=== PATIENT | female | born 1940 | race Caucasian/White ===

== ENCOUNTER → 2016-02-26 | Outpatient (CLI) | payer MEDICARE ==
[2016-02-26 13:15] LABS: Basophils % (A) 0 %; CHCM 32.9; Eosinophils # (A) 0.1 k/uL (0-0.7); Eosinophils % (A) 2 %; HCT 50.1 % (34.0-46.0); HGB 16.4 gm/dL (11.4-16.0); Luc % (Auto) 1; Lymphocytes # (A) 1.8 k/uL (1.0-4.8); Lymphocytes % (A) 19 %; MCH 31.9 pg (25.0-35.0); MCHC 32.7 g/dL (31.0-37.0); MCV 97.6 fL (80.0-100.0); Mean Platelet Volume 8.1; Monocytes # (A) 0.4 k/uL (0-1.0); Monocytes % (A) 4 %; Neutrophils % (A) 74 %; RBC 5.13 m/uL (3.80-5.40); RDW 13.6 % (11.5-15.5); WBC 9.5 k/uL (3.8-10.6); WBC (Perox) 9.44
[2016-02-26 13:26] LABS: Anion Gap 13 mmol/L; Blood Urea Nitrogen 31 mg/dL (7-17); Carbon Dioxide 23 mmol/L (22-30); Chloride 107 mmol/L (98-107); Non-African American GFR(MDRD) 51 (>60 ml/min/1.73 sqM); Sodium 143 mmol/L (137-145)
== END | disposition home or self-care (01) ==
LOC: LABPAT 12:29
PROVIDERS: ATTEND Internal Medicine Cardiovascular Disease
DX: Z01.812 Encounter for preprocedural laboratory examination (principal); I25.5 Ischemic cardiomyopathy
CPT/HCPCS: 80051; 82565; 84520; 85025

== ENCOUNTER 2016-02-28 07:42 | Day surgery (SDC) | payer MEDICARE, OTHER ==
[2016-02-20 10:53] VITALS: BMI 21.5
[~2016-02-28 07:42] MED LIST: LACTATED RINGERS 1,000 ML IV SCH; SODIUM CHLORIDE 0.9% 1,000 ML IV SCH
[2016-02-28] MEDS ORDERED: ceFAZolin 1,000 MG in SODIUM CHLORIDE 0.9% IRRIGATIO 250 ML IRRIGATION ONE (08:00)
[2016-02-28] MEDS ORDERED: ceFAZolin 2 GM in SODIUM CHLORIDE 0.9% 100 ML IVPB ONE (08:00)
[2016-02-28 08:52] VITALS: RESP 18
[2016-02-28 09:19] LABS: INR 1.5 (<1.1); Prothrombin Time 14.3 sec (9.0-12.0)
[2016-02-28] MEDS ORDERED: PROPOFOL 10 MG/ML 20 ML VIAL IV ONE (10:00)
[2016-02-28] MEDS ORDERED: ONDANSETRON 4 MG/2 ML VIAL ONE (10:00)
[2016-02-28] MEDS ORDERED: ePHEDrine 50 MG/ML 1 ML AMP ONE (10:00)
[2016-02-28] MEDS ORDERED: SODIUM CHLORIDE 0.9% 500 ML BAG ONE (10:00)
[2016-02-28] MEDS ORDERED: HYDROmorphone (PF) 1 MG/ML ONE (10:00)
[2016-02-28] MEDS ORDERED: MIDAZOLAM 2 MG/2 ML VIAL ONE (10:00)
[2016-02-28] MEDS ORDERED: IV FLUID CONTINUATION 1,000 ML IV ONE (10:07)
[2016-02-28] MEDS ORDERED: LIDOCAINE 1% INJ 10MG/ML (20 ML MDV) SQ ONE (10:50)
[2016-02-28] MEDS ORDERED: SODIUM CHLORIDE 0.9% 500 ML IV ONE (11:08)
[2016-02-28] MEDS ORDERED: HYDROcodone/APAP 5-325MG 1 EACH TAB PO PRN (11:23)
[2016-02-28] MEDS ORDERED: ACETAMINOPHEN TAB 325 MG TAB PO PRN (11:23)
--- NOTE | 2016-02-28 11:35 | P.PCN ---
Date of Procedure: 02/28/16 Preoperative Diagnosis: History of AICD placement. Generator change for depletion Postoperative Diagnosis: The same Procedure(s) Performed: Generator change, DFT Description of Procedure: HISTORY: This is a [id number] with history of AICD implantation was found to have evidence of battery depletion. She was advised to have battery replacement. Patient was explained the risks and benefits of the procedure CONSENT: I have discussed the risks and benefits as related to the above mentioned procedure and both sedation/analgesia as well as necessary blood product administration. The patient has indicated understanding and acceptance of the risks of the procedure discussed. PROCEDURE: Patient was brought to the lab in a fasting state. Patient was given IV sedation by department of anesthesia. The skin over the existing pulse generator was infiltrated with lidocaine. An incision was made in the skin and was deepened until the pectoral fascia was exposed. Hemostasis was obtained. The existing pulse generator was pulled out of the pocket. The leads were disconnected and were checked for thresholds. THRESHOLDS: VENTRICULAR: The minimum patient threshold was 0.75 V at pulse width of 0.5 ms. Impedance is 480 ohms. R-wave: 12 mV THE LEADS: VENTRICULAR: This is manufactured by [employer]. Model number is 0158 and the serial number is [id number] THE EXPLANTED DEVICE: This is manufactured by [employer]. Model number is V-[id number] and the serial number is [id number] THE NEW DEVICE: This is manufactured by [employer]. Model number is capital [id number] and the serial number is [id number] . The leads were then connected to a new pulse generator and the thresholds remained stable the shock impedance was 48. DFT TESTING: This was performed under general anesthesia. V. fib was induced with T shock. This was appropriately detected and converted to sinus rhythm with 11 J shock. No dropouts noted. Patient tolerated the procedure well . The pocket was irrigated with antibiotics. The pocket was closed in the usual fashion. Pectoral fascia was closed with 2-0 Prolene, the subcutaneous tissue was closed with 3-0 Prolene and the skin was closed with 4-0 Prolene. Patient tolerated the procedure well . Patient will be monitored on the telemetry unit for 2-3 hours. If stable patient be discharged home later today. FINAL IMPRESSION: #1. Successful generator change #2. DFT testing PLAN: Patient will monitor for the next several hours. If stable patient be discharged home FALLOW UP: Follow-up with Dr. Nguyen in one week.
[2016-02-28 15:35] VITALS: BP 99/52; PULSE 60; TEMP 98.2
== END 2016-02-28 15:00 | disposition home or self-care (01) ==
LOC: CATHEP 07:42
PROVIDERS: ATTEND Internal Medicine Cardiovascular Disease
DX: Z45.010 Encounter for checking and testing of cardiac pacemaker pulse generator [battery] (principal); I25.5 Ischemic cardiomyopathy; I10 Essential (primary) hypertension; K21.9 Gastro-esophageal reflux disease without esophagitis; I25.10 Atherosclerotic heart disease of native coronary artery without angina pectoris; E78.5 Hyperlipidemia, unspecified; I25.2 Old myocardial infarction; Z87.891 Personal history of nicotine dependence; Z79.01 Long term (current) use of anticoagulants; Z79.82 Long term (current) use of aspirin; Z79.899 Other long term (current) drug therapy
CPT/HCPCS: 93641; 33262; 85610; C1722; J2250; J2405; J2001; J1170; J2704; 99152; 99153

== ENCOUNTER → 2018-05-27 | Outpatient (CLI) | payer MEDICARE ==
[~2018-05-27] MED LIST changes: -LACTATED RINGERS 1,000 ML IV SCH; +REGADENOSON 0.4 MG/5 ML SYRINGE IV ONE; -SODIUM CHLORIDE 0.9% 1,000 ML IV SCH
--- NOTE | 2018-05-27 11:10 | ECHOF ---
Referral Reason:I25.10 CAD MEASUREMENTS -------- HEIGHT: 157.5 cm WEIGHT: 49.9 kg BP: RVIDd: 1.8 cm (< 3.3) IVSd: 1.0 cm (0.6 - 1.1) LVIDd: 6.5 cm (3.9 - 5.3) LVPWd: 1.0 cm (0.6 - 1.1) IVSs: 1.0 cm LVIDs: 6.0 cm LVPWs: 1.3 cm LAESV Index (A-L): 37.17 ml/m Ao Diam: 3.0 cm (2.0 - 3.7) AV Cusp: 1.6 cm (1.5 - 2.6) LA Diam: 3.4 cm (2.7 - 3.8) EPSS: 1.4 cm MV E Mesfin: 0.76 m/s MV DecT: 245 ms MV A Mesfin: 1.20 m/s MV E/A Ratio: 0.63 AV maxP.49 mmHg AV meanP.73 mmHg RAP: 5.00 mmHg RVSP: 18.92 mmHg MV EF SLOPE: 69.16 mm/s (70 - 150) MV EXCURSION: 1.44 cm (> 18.000) FINDINGS -------- Sinus rhythm. Frequent ventricular premature beats. This was a technically good study. The left ventricular size is normal. Left ventricular wall thickness is normal. Overall left vent ricular systolic function is severely impaired with, an EF < 20%. Mid and basal inferior and basal lateral are only moving wall segments. The right ventricle is normal in size and function. LA is moderately dilated 34-39 ml/m2 Electronic pacemaker lead seen in the right ventricular cavity. RA appears enlarged. There is mild aortic valve sclerosis. There is no evidence of aortic regurgitation. There is mild aortic stenosis present. Peak/mean gradient across the Aortic Valve is 11.49mmHg / 5.73mmHg. Aor tic valve gradients are underrepresented due to low cardiac output. The mitral valve leaflets are moderately thickened. Mild mitral annular calcification present. Mo derate mitral regurgitation is present. Mild tricuspid regurgitation present. Right ventricular systolic pressure is normal at < 35 mmHg. There is no evidence of pulmonary hypertension. Trace/mild (physiologic) pulmonic regurgitation. The aortic root size is normal. Normal inferior vena cava with normal inspiratory collapse consistent with estimated right atrial pre ssure of 5 mmHg. Moderate Pleural Effusion. CONCLUSIONS -------- 1. Sinus rhythm. 2. Frequent ventricular premature beats. 3. This was a technically good study. 4. The left ventricular size is normal. 5. Left ventricular wall thickness is normal. 6. Overall left ventricular systolic function is severely impaired with, an EF < 20%. 7. Mid and basal inferior and basal lateral are only moving wall segments. 8. LA is moderately dilated 34-39 ml/m2 9. Electronic pacemaker lead seen in the right ventricular cavity. 10. RA appears enlarged. 11. There is mild aortic valve sclerosis. 12. There is mild aortic stenosis present. 13. Peak/mean gradient across the Aortic Valve is 11.49mmHg / 5.73mmHg. 14. Aortic valve gradients are underrepresented due to low cardiac output. 15. The mitral valve leaflets are moderately thickened. 16. Mild mitral annular calcification present. 17. Moderate mitral regurgitation is present. 18. Mild tricuspid regurgitation present. 19. Right ventricular systolic pressure is normal at < 35 mmHg. 20. There is no evidence of pulmonary hypertension. 21. Trace/mild (physiologic) pulmonic regurgitation. 22. The aortic root size is normal. 23. Moderate Pleural Effusion. FIRE DEPARTMENT BATTALION CHIEF: Tony Rader RDCS
--- NOTE | 2018-05-27 12:30 | P.STRESS ---
- Stress Test Note Stress Test Results/Findings: Exam Performed: NM stress lexiscan cardiolite Exam Date: 05/27/18 Reason for Exam: CAD Height: 5 ft 2 in Weight: 49.442 kg Protocol: LEXISCAN Stage: NA Duration of Exercise: NA Resting Heart Rate: 57 Resting Blood Pressure: 131/91 Maximum Achieved Heart Rate: 86 Maximum Achieved Blood Pressure: 182/96 85% PMHR: NA 100% PMHR: NA METS: NA Technologist Comment: Stress Test Results/Findings: This is a 78-year-old female with history of of smoking and family history of ischemic heart disease being evaluated for symptoms of chest pain and dyspnea. Stress data: Baseline EKG showed sinus rhythm with PVCs. Blood pressure at rest is 131/91 with pulse rate of 57. A standard dose of Lexiscan was infused. EKGs taken during and after the infusion did not reveal any significant changes from the baseline. Final impression: #1. Negative Lexiscan stress test #2. Report on the nuclear images to be given by the radiologist
--- NOTE | 2018-05-27 13:52 | NM ---
EXAMINATION TYPE: NM stress lexiscan cardiolite DATE OF EXAM: 05/27/2018 COMPARISON: CT chest 2013 HISTORY: History of tobacco use quit 2004 with family history of heart attack presents with chest german n and difficulty in breathing TECHNIQUE: After the intravenous administration of 10.08 mCi Tc 99m Sestamibi - Cardiolite resting S PECT images acquired 45 minutes post injection. The patient received 0.4mg Lexiscan, 26.0 mCi Tc 99m Sestamibi - Stress images obtained [address] injection FINDINGS: Review of stress and rest SPECT images demonstrates large area of diminished radiotracer uptake on st ress and rest images involving the anterior septal wall extending into the septal wall consistent wit h old large infarct. Some areas of refugio-infarct ischemia impossible to exclude given the large area o f poor uptake. Gated analysis shows overall markedly diminished ejection fraction of 24% end-diastoli c velocity is 2 59 cc. 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 Correlate clinica lly and with EKG. Area of refugio-infarct ischemia cannot be excluded, consider direct catheter angiogra m based on clinical correlation.
== END | disposition home or self-care (01) ==
LOC: RADNMMAIN 08:45
PROVIDERS: ATTEND Family Medicine
DX: I49.3 Ventricular premature depolarization (principal); I35.0 Nonrheumatic aortic (valve) stenosis; J90 Pleural effusion, not elsewhere classified; I25.10 Atherosclerotic heart disease of native coronary artery without angina pectoris
CPT/HCPCS: 93017; 93306; 78452; A9500; J2785

== ENCOUNTER → 2018-06-23 | Outpatient (CLI) | payer MEDICARE ==
[2018-06-23 12:27] LABS: HCT 41.8 % (34.0-46.0); HGB 13.6 gm/dL (11.4-16.0); MCH 29.5 pg (25.0-35.0); MCHC 32.4 g/dL (31.0-37.0); Mean Platelet Volume 8.1; Platelet Count 216 k/uL (150-450); RBC 4.59 m/uL (3.80-5.40); RDW 15.5 % (11.5-15.5); WBC 11.3 k/uL (3.8-10.6)
== END | disposition home or self-care (01) ==
LOC: LABPAT 11:05
PROVIDERS: ATTEND Internal Medicine Cardiovascular Disease
DX: Z01.812 Encounter for preprocedural laboratory examination (principal); I25.5 Ischemic cardiomyopathy; I25.10 Atherosclerotic heart disease of native coronary artery without angina pectoris
CPT/HCPCS: 36415; 80051; 82565; 84520; 85027

== ENCOUNTER → 2018-06-23 | Outpatient (CLI) | payer MEDICARE | END | disposition home or self-care (01) | LOC: LABWHC1 11:12 | PROVIDERS: ATTEND Internal Medicine Cardiovascular Disease | DX: E78.2 Mixed hyperlipidemia (principal) | CPT/HCPCS: 36415; 80061; 84450; 84460 ==

== ENCOUNTER 2018-06-29 06:32 | Day surgery (SDC) | payer MEDICARE ==
[~2018-06-29 06:32] MED LIST changes: +ALPRAZolam 0.25 MG TAB PO PRN; +ALPRAZolam 0.5 MG TAB PO PRN; +ASPIRIN 325 MG TAB PO STA; +ATORVASTATIN 80 MG TAB PO STA; +NITROGLYCERIN SL TABS 0.4 MG TAB SUBLINGUAL PRN; -REGADENOSON 0.4 MG/5 ML SYRINGE IV ONE; +SODIUM CHLORIDE 0.9% 1,000 ML in EMPTY BAG 1 BAG IV ONE
[2018-06-29 07:03] VITALS: TEMP 98.9
[2018-06-29] MEDS ORDERED: fentaNYL (PF) 50 MCG/ML 2 ML AMP ONE (07:22)
[2018-06-29] MEDS ORDERED: LIDOCAINE 1% INJ 10MG/ML (20 ML MDV) ONE (07:22)
[2018-06-29] MEDS ORDERED: fentaNYL (PF) 50 MCG/ML 2 ML AMP IV ONE (07:40)
[2018-06-29] MEDS ORDERED: LIDOCAINE 1% INJ 10MG/ML (20 ML MDV) SQ ONE (07:40)
[2018-06-29] MEDS ORDERED: MIDAZOLAM (PF) 2 MG/2 ML VIAL IV ONE (07:40)
[2018-06-29] MEDS ORDERED: RX INFO: IV CONTRAST WAS GIVEN 1 EACH MISC MISCELLANE PRN (07:57)
[2018-06-29] MEDS ORDERED: SODIUM CHLORIDE 0.9% 1,000 ML IV SCH (08:00)
[2018-06-29 09:55] VITALS: RESP 18
[2018-06-29] MEDS ORDERED: LISINOPRIL 5 MG TAB PO STA (09:55)
[2018-06-29] MEDS ORDERED: METOPROLOL TARTRATE 25 MG TAB PO STA (09:55)
--- NOTE | 2018-06-29 10:40 | CC ---
CARDIAC CATHETERIZATION REPORT INDICATION: Ischemic cardiomyopathy with severe LV dysfunction. PROCEDURE NOTE: After obtaining informed consent, left heart catheterization, coronary angiogram are performed via the right femoral artery using standard Iesha catheters. The patient tolerated the procedure well without any obvious immediate complications. A femoral angiogram was performed and addition was made for manual hemostasis patient has extensively calcified femoral artery on the patient received moderate conscious sedation. Total sedation time was 14 minutes. FINDINGS: HEMODYNAMICS: Left ventricular end-diastolic pressure is 12 to 14 mm. There is no significant gradient across the aortic valve. LEFT VENTRICULOGRAM: Left ventriculogram is not performed. ANGIOGRAPHIC DATA LEFT MAIN CORONARY ARTERY: Left main coronary artery is a normal-sized vessel and is free of stenosis. Divides into left anterior descending coronary artery and circumflex coronary artery. The entire left coronary system appears heavily calcified. The previously stented proximal LAD appears patent. Circumflex coronary artery is a nondominant vessel. There is a moderate area of focal stenosis, which at its worst seems to be 40%. Right coronary artery is a large dominant vessel. Extensively calcified and diffusely diseased. Mid circumflex coronary artery shows a 40% stenosis. CONCLUSION: Patent stent within the LAD, moderate stenosis involving both the right coronary artery and circumflex coronary artery. PLAN: Patient will be managed with optimal medical therapy. She will be discharged home this afternoon and follow up with me. She we need to optimize her medical therapy. MMODL / IJN: [id number] /
[2018-06-29 12:17] VITALS: BP 161/80; PULSE 54
== END 2018-06-29 15:30 | disposition home or self-care (01) ==
LOC: CATHCVL 06:32
PROVIDERS: ATTEND Internal Medicine Cardiovascular Disease
DX: I25.10 Atherosclerotic heart disease of native coronary artery without angina pectoris (principal); I25.84 Coronary atherosclerosis due to calcified coronary lesion; I70.201 Unspecified atherosclerosis of native arteries of extremities, right leg; I25.5 Ischemic cardiomyopathy; I10 Essential (primary) hypertension; Z72.0 Tobacco use; E78.5 Hyperlipidemia, unspecified; Z95.5 Presence of coronary angioplasty implant and graft; Z95.810 Presence of automatic (implantable) cardiac defibrillator; Z79.82 Long term (current) use of aspirin; Z79.899 Other long term (current) drug therapy; Z79.01 Long term (current) use of anticoagulants
CPT/HCPCS: 93458; C1894; C1769; J2001; J3010; J2250

== ENCOUNTER → 2018-11-06 | Outpatient (CLI) | payer MEDICARE, OTHER | END | disposition home or self-care (01) | LOC: RADPETMAIN 11:14 | PROVIDERS: ATTEND Family Medicine | DX: Z53.8 Procedure and treatment not carried out for other reasons (principal) ==

== ENCOUNTER → 2018-11-12 | Outpatient (CLI) | payer MEDICARE, OTHER ==
--- NOTE | 2018-11-12 18:06 | PE ---
Nuclear medicine PET/CT HISTORY: Malignant lung carcinoma, initial Patient received 11.8 mCi F-18 FDG intravenously in delayed scanning was performed from the skull bas e to the mid thighs. Localization and attenuation correction CT scan was performed. Correlation to chest CT from outside institution 10/21/2018 Neck and CHEST: Pleural-based mass which extends to the mediastinum and right hilar region is again n oted and shows peripheral associated hypermetabolic uptake, SUV is 10.3. Retrocaval pretracheal node is enlarged and shows SUV 8.7, there is likely right hilar node measuring SUV 10. There is underlying interstitial lung disease. No pleural or pericardial effusion. ABDOMEN: Some mild prominence of the adrenal glands is noted. No associated hypermetabolic uptake. Th ere is no evident liver mass. No retroperitoneal adenopathy. Osseous structures are remarkable for degenerative disc changes. There is a spinal curvature. No asso ciated hypermetabolic uptake. IMPRESSION: Findings compatible with patient's history of bronchogenic carcinoma.
== END | disposition home or self-care (01) ==
LOC: RADPETMAIN 14:22
PROVIDERS: ATTEND Family Medicine
DX: C34.11 Malignant neoplasm of upper lobe, right bronchus or lung (principal)
CPT/HCPCS: 78815; A9552